=== PATIENT | female | born 1975 | race Caucasian/White ===

== ENCOUNTER 2017-11-01 07:06 | Day surgery (SDC) | payer OTHER ==
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
[~2017-11-01 07:06] MED LIST: ACETAMINOPHEN 1,000 MG/100 ML BTL IV ONE; CLINDAMYCIN 600MG/50ML PREMIX 600 MG/50 ML BAG IVPB ONE; FAMOTIDINE 20MG TABLET PO ONE; MECLIZINE 25 MG TABLET PO ONE; METOCLOPRAMIDE 10 MG TABLET PO ONE
[2017-11-01] MEDS ORDERED: BUPIVACAINE 0.5% W/EPI MPF 30 ML VIAL IVP ONE (07:07)
[2017-11-01] MEDS ORDERED: LIDOCAINE 1% MDV (10MG/ML) 20ML VIAL SQ ONE (07:07)
[2017-11-01] MEDS ORDERED: *PACU ONLY* KETAMINE HCL 10 MG/ML (20ML) VIAL IV ONE (07:07)
[2017-11-01] MEDS ORDERED: LIDOCAINE 1% W/EPI 1:200,000 MPF 30ML SQ ONE (07:07)
[2017-11-01] MEDS ORDERED: PROPOFOL 10 MG/ML VIAL IV ONE (07:07)
[2017-11-01] MEDS ORDERED: FENTANYL PF 100MCG/2ML VIAL IV ONE (07:07)
[2017-11-01] MEDS ORDERED: FLUMAZENIL 1MG/10ML VIAL IV ONE (07:07)
[2017-11-01] MEDS ORDERED: MIDAZOLAM HCL 2MG/2ML VIAL IV ONE (07:07)
[2017-11-01] MEDS ORDERED: HYDROMORPHONE HCL 2 MG/ML VIAL IV ONE (07:07)
[2017-11-01 07:25] LABS: BLEEDING TIME 4.5 MINUTES (1.5-7.0)
[2017-11-01 07:42] LABS: INR 0.9; PARTIAL THROMBOPLASTIN TIME 35.9 SECONDS (24.5-39.1)
[2017-11-01] MEDS ORDERED: DIPHENHYDRAMINE HCL 25 MG CAPSULE PO PRN ×2 (11:15)
[2017-11-01] MEDS ORDERED: METOCLOPRAMIDE HCL 10 MG/2 ML VIAL IVP PRN (11:15)
[2017-11-01] MEDS ORDERED: ACETAMINOPHEN 325 MG TAB PO PRN ×2 (11:15)
[2017-11-01] MEDS ORDERED: DIPHENHYDRAMINE HCL 50 MG/ML VIAL IVP PRN ×2 (11:15)
[2017-11-01] MEDS ORDERED: SENNOSIDES/DOCUSATE SODIUM UD CAPSULE PO PRN ×2 (11:15)
[2017-11-01] MEDS ORDERED: HYDROMORPHONE HCL 2 MG/ML VIAL IM PRN ×2 (11:15)
[2017-11-01] MEDS ORDERED: TEMAZEPAM 15 MG CAPSULE PO PRN ×2 (11:15)
[2017-11-01] MEDS ORDERED: OXYCODONE/APAP 10MG-325MG TABLET PO PRN ×2 (11:15)
[2017-11-01] MEDS ORDERED: AL HYDROX/MAG HYDROX 30ML UD PO PRN (11:15)
[2017-11-01] MEDS ORDERED: METOCLOPRAMIDE 10 MG TABLET PO PRN (11:15)
[2017-11-01] MEDS: HYDROCODONE/APAP 7.5/325MG TABLET PO PRN ×4 (11:52→22:26)
[2017-11-01] MEDS ORDERED: ONDANSETRON 4 MG ODT TABLET SL PRN (15:51)
[2017-11-01] MEDS: CLINDAMYCIN 600MG/50ML PREMIX 600 MG/50 ML BAG IVPB SCH ×2 (15:55→23:00)
[2017-11-01] MEDS: BACLOFEN 20 MG PO SCH (18:48)
[2017-11-01] MEDS: BUSPIRONE 30 MG PO SCH (18:48)
[2017-11-01] MEDS: LYRICA PO SCH (18:49)
[2017-11-01] MEDS: LAMOTRIGINE 100 MG PO SCH (18:49)
[2017-11-01] MEDS: PATIENT OWN MED: OXYBUTYNIN 5 MG PO SCH (18:50)
[2017-11-01] MEDS: ZIPRASIDONE 80 MG PO SCH (18:51)
[2017-11-01] MEDS: TIZANIDINE 4 MG PO SCH ×2 (18:51→20:53)
--- NOTE | 2017-11-01 21:46 | Operative Note - Ferro ---
DATE OF SURGERY: 11/01/17 PREOPERATIVE DIAGNOSIS: LUMBAR RADICULOPATHY, ICD-10 CODE = M54.16 AND M54.17. SURGERY: 1. FLUOROSCOPIC-GUIDED EPIDURAL ACCESS ATTEMPTED LEFT T12-L1, CURVED ACCESS EPIMED NEEDLE. PLACEMENT OF [employer] 16 ELECTRODE LEAD, UNSUCCESSFUL. 2. FLUOROSCOPIC-GUIDED EPIDURAL ACCESS LEFT T11-12. EIGHT-INCH STRAIGHT EPIDURAL ACCESS NEEDLE. PLACEMENT OF SPINAL CORD STIMULATOR LEAD 1, A [employer] OCTAPOLAR 8 ELECTRODES INSERTED LEFT OF MIDLINE T7. 3. FLUOROSCOPIC-GUIDED EPIDURAL ACCESS LEFT T12-L1. EIGHT-INCH EPIMED NEEDLE, LOSS OF RESISTANCE, PLACEMENT OF SPINAL CORD STIMULATOR LEAD 2, A [employer] OCTAPOLAR 8 ELECTRODES POSITIONED RIGHT T7. 4. COMPLEX PROGRAMMING OF LEAD 1, OVER 20 MINUTES FOLLOWED BY COMPLEX PROGRAMMING OF LEAD 2, OVER 20 MINUTES. 5. INCISION, SUBCUTANEOUS DISSECTION, AND ANCHORING OF LEAD 1 AND LEAD 2 TO SUPRASPINOUS FASCIA USING A [employer] LOCKING ANCHOR. 6. INCISION, SUBCUTANEOUS DISSECTION, AND CREATION OF SUBCUTANEOUS POUCH AT RIGHT FLANK FOR PLACEMENT OF GENERATOR IDENTIFIED A WAVEWRITER. 7. TUNNELING BETWEEN LEAD POUCH TO GENERATOR POUCH, PLACEMENT OF EXTERNAL PORTION OF LEAD 1 AND LEAD 2 INTO GENERATOR POUCH, EACH LEAD INTERFACED TO THE GENERATOR. 8. PLACEMENT OF GENERATOR INTO POUCH SECURING TO POSTERIOR FASCIA WITH NONABSORBABLE SUTURE. PLACEMENT OF LEADS INTO POUCH, CLOSURE OF BOTH INCISIONS WITH SRATAFIX 2-0 FOR FASCIA, STRATAFIX 3-0 SUBCUTICULAR CLOSURE, DERMABOND CLOSURE OVER INCISIONS. 9. COMPLEX RECOVERY ROOM PROGRAMMING INTERNAL GENERATOR HOME USE, TWO STIMULATORS, 20 MINUTES. SURGEON: MENDY DAVIS D.O. ANESTHESIA: LOCAL SEDATION. ANESTHESIA PROVIDER: AGUILAR RADFORD CRNA. INDICATIONS: This patient presents with a history of an intractable lumbar radiculopathy. Due to the failure of all therapy and the success of spinal cord stimulator trial, she presents today for implantation of a permanent system. SURGERY: Intravenous line, vital sign monitoring, IV sedation, prepped and draped in sterile technique, under imaging, patient positioned prone. Sterile prep, sterile technique. The epidural interspace at 12-1 was identified. A curved access Epimed needle with loss of resistance into the space. A [employer] 16 electrode lead was then advanced and unsuccessfully passed into the space. Lateral imaging showed insufficient length of the needle and the lead into the subcutaneous tissues. The [employer] 16 electrode lead was then removed and then Epimed curved access was removed. Two separate eight-inch standard needles were then used. At 12-1 and 11-12, skin infiltrated and then the standard loss of resistance with the eight-inch needle was used to access the space. At T11-12, spinal cord stimulator lead 1, a [employer] Octapolar 8 electrodes was advanced into the epidural space left of the midline at T7. Access then with the eight-inch needle at 12-1 was then accomplished. Spinal cord stimulator lead 2, a [employer] Octapolar 8 electrodes advanced right of the midline at T7. Complex programming of lead 1 over 20 minutes, complex programming of lead 2 over 20 minutes with the patient awake and alert reestablishing stimulation and pain control to all the appropriate areas. She was given the option to implant, continue to program, or remove; she opted to implant. She was re-sedated. The skin was infiltrated, incision made, and subcutaneous dissection was conducted to the supraspinous fascia. Each lead was then anchored to the supraspinous fascia with a [employer] locking anchor. At the right flank, a site picked by the patient for the generator, skin infiltrated, incision made, and subcutaneous dissection was conducted to form a pouch of suitable size and depth for the generator identified as a WaveWriter programmable, rechargeable. A tunneling tool was used to carry the two leads into the flank pouch and each lead was interfaced with the generator. Antibiotic irrigation and Bovie for hemostasis. The generator was placed into the pouch and secured to the posterior fascia with nonabsorbable suture. The leads were then placed into their own pouch and then both incisions were closed with a STRATAFIX 2-0 for the fascia and a STRATAFIX 3-0 running subcuticular for skin. A Dermabond closure was then used to approximate the edges of the wound. She was transported to the Recovery Room stable, no side effects from the procedure or the sedation. When fully awake and alert, complex programming in the Recovery Room performed reestablishing stimulation and pain control to all the appropriate areas. She will be kept overnight for observation and discharged in the morning. DISCHARGE INSTRUCTIONS: 1. The sites will remain clean and dry. No showering or bathing in any way that would disrupt dressings. If it happens, contact the Clinic. 2. Standard medications will be resumed including Levaquin, the antibiotic, 500 mg once a day for 14 days. 3. The office will contact the patient at home in the next 24 to 48 hours to set up an appointment in 7 to 10 days to evaluate the sites. Until then, her activities should stay low. All other instructions provided, numbers to contact if problems given. She will then be prepared for discharged. cc: Dr. Amarjit Carbajal and Dr. Gregory JOB NUMBER: [id number] MTDD
[2017-11-01] MEDS: 0.9 % SODIUM CHLORIDE 10ML SYR IVP SCH (22:04)
[2017-11-02] MEDS: HYDROCODONE/APAP 7.5/325MG TABLET PO PRN ×3 (03:37→10:26)
[2017-11-02] MEDS ORDERED: PATIENT OWN MED: OMEPRAZOLE 20 MG PO SCH (07:00)
[2017-11-02] MEDS ORDERED: PATIENT OWN MED: FUROSEMIDE 20 MG PO SCH (08:00)
[2017-11-02] MEDS ORDERED: PATIENT OWN MED: BUPROPION XL 300 MG PO SCH (08:00)
[2017-11-02] MEDS ORDERED: BUPROPION 150 MG PO SCH (08:00)
[2017-11-02] MEDS ORDERED: VIIBRYD 40 MG PO SCH (08:00)
[2017-11-02] MEDS: BACLOFEN 20 MG PO SCH (10:28)
[2017-11-02] MEDS: BUSPIRONE 30 MG PO SCH (10:29)
[2017-11-02] MEDS: 0.9 % SODIUM CHLORIDE 10ML SYR IVP SCH (10:43)
[2017-11-02] MEDS: PATIENT OWN MED: OXYBUTYNIN 5 MG PO SCH (10:44)
[2017-11-02] MEDS: LAMOTRIGINE 100 MG PO SCH (10:44)
[2017-11-02] MEDS: CLINDAMYCIN 600MG/50ML PREMIX 600 MG/50 ML BAG IVPB SCH (10:44)
[2017-11-02] MEDS: LYRICA PO SCH (10:44)
[2017-11-02] MEDS: TIZANIDINE 4 MG PO SCH (10:45)
[2017-11-02] MEDS: ZIPRASIDONE 80 MG PO SCH (10:45)
--- NOTE | 2017-11-03 10:24 | RADIOLOGY REPORT ---
EXAM: THORACOLUMBAR SPINE HISTORY: STATUS POST SPINAL CORD STIMULATOR IMPLANT. TECHNIQUE: A single portable frontal view of the thoracolumbar spine was obtained. Comparison: None. FINDINGS: A single frontal image of the thoracolumbar spine was used to visualize the implanted device. Implant generator overlies the right eleventh and twelfth ribs. Implant leads extend superiorly along the thoracolumbar spine, with lead electrodes in the projection of the T7 and T8 vertebral bodies. IMPRESSION: ABOVE. JOB NUMBER: [id number] [facility]
== END 2017-11-02 12:40 | disposition home or self-care (01) ==
LOC: SUR 07:06 → MEDSURG 10:56 → SUR 11-02 12:40
PROVIDERS: ATTEND Pain Medicine Interventional Pain Medicine
DX: M54.16 Radiculopathy, lumbar region (principal); M54.17 Radiculopathy, lumbosacral region; F31.9 Bipolar disorder, unspecified; J45.909 Unspecified asthma, uncomplicated; E66.01 Morbid (severe) obesity due to excess calories; Z68.44 Body mass index [BMI] 60.0-69.9, adult
CPT/HCPCS: 63650; 63685; 01936; 95972; 85730; 85610; 85002; 72020; 94760; J3010; J1170; C1820; C1883; J2765